=== PATIENT | male | born 2000 | race Asian ===

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

== ENCOUNTER 2018-09-13 18:12 | Emergency (ER) | payer MEDICAID ==
[~2018-09-13] VITALS: Ht 170.2 cm; Wt 68.0 kg
[2018-09-13 18:20] VITALS: BP_SYST 129
[2018-09-13 19:45] VITALS: BP_SYST 120
== END 2018-09-13 19:45 | disposition home or self-care (01) ==
LOC: SED 18:12
DX: R21 Rash and other nonspecific skin eruption (principal); R03.0 Elevated blood-pressure reading, without diagnosis of hypertension
CPT/HCPCS: 36415; 86592; 99283

== ENCOUNTER 2019-02-28 12:12 | Emergency (ER) | payer MEDICAID ==
[~2019-02-28] VITALS: Ht 170.2 cm; Wt 65.8 kg
[2019-02-28 12:30] VITALS: BP_SYST 124
[2019-02-28 13:57] VITALS: BP_SYST 124
== END 2019-02-28 13:50 | disposition home or self-care (01) ==
LOC: SED 12:12
DX: H61.22 Impacted cerumen, left ear (principal)
CPT/HCPCS: 99282